=== PATIENT | male | born 1980 | race Caucasian/White ===

== ENCOUNTER 2018-06-28 13:50 | Emergency (ER) | payer MEDICARE ==
[~2018-06-28] VITALS: Ht 195.6 cm; Wt 113.0 kg
[~2018-06-28 13:50] MED LIST: GABA300C10 PO; MORP30TA81 PO; OXYC10TA6 PO
[2018-06-28 13:52] VITALS: BP 134/90
[2018-06-28] MEDS ORDERED: DIPH,PERTUSS(ACELL),TET VAC/PF 0.5 ML IM-VACC ONE ×2 (14:25→14:30)
[2018-06-28] MEDS ORDERED: L.E.T SOLUTION TP ONE ×3 (14:25→14:37)
[2018-06-28] MEDS ORDERED: SILVER SULF. CRM 1% , 25GM ONE (14:25)
[2018-06-28] MEDS ORDERED: OXYcodone/APAP 5/325MG TABLET ONE (14:25)
[2018-06-28] MEDS ORDERED: SILVER SULF. CRM 1% , 25GM TP ONE (14:30)
[2018-06-28] MEDS ORDERED: OXYcodone/APAP 5/325MG TABLET PO ONE (14:30)
[2018-06-28] MEDS ORDERED: BACITRACIN ZINC OINT 500U/GM, 0.9 GM ONE (15:01)
== END 2018-06-28 15:24 | disposition home or self-care (01) ==
LOC: ED 15:03
DX: T22.112A Burn of first degree of left forearm, initial encounter (principal); T31.0 Burns involving less than 10% of body surface; G89.29 Other chronic pain; E78.00 Pure hypercholesterolemia, unspecified; F41.1 Generalized anxiety disorder; F17.200 Nicotine dependence, unspecified, uncomplicated; X19.XXXA Contact with other heat and hot substances, initial encounter; Y93.89 Activity, other specified; Y99.8 Other external cause status; Y92.89 Other specified places as the place of occurrence of the external cause
CPT/HCPCS: 16000; 90471; 90715; 99284

== ENCOUNTER 2019-05-27 08:18 | Outpatient (CLI) | payer MEDICARE, MEDICAID | END 2019-05-27 23:59 | disposition home or self-care (01) | LOC: CARD 08:18 | PROVIDERS: ATTEND Specialist | DX: R41.3 Other amnesia (principal) | CPT/HCPCS: 95816 ==

== ENCOUNTER 2019-12-10 10:01 | Emergency (ER) | payer MEDICAID, MEDICARE ==
[~2019-12-10] VITALS: Ht 195.6 cm; Wt 120.1 kg
[2019-12-10 10:30] VITALS: BP 119/67
[2019-12-10] MEDS ORDERED: ALPR1TAB2 PO (10:47)
[2019-12-10] MEDS ORDERED: GABA300C10 PO (10:47)
[2019-12-10] MEDS ORDERED: OXYC10TA72 PO (10:47)
[2019-12-10] MEDS ORDERED: TIZA4TAB9 PO (10:47)
--- NOTE | 2019-12-10 10:47 | NUR ---
THIS IS A 39 YO MALE WHO PRESENTS TO THE ER C/O COUGH/CHEST TIGHTNESS/DRY HEAVING SINCE WEDNESDAY AFTERNOONE. SKIN PWD. RESP EVEN AND UNLABORED. PT EASILY ABLE TO SPEAK IN FULL 7-10 WORD SENTENCES. OCCAISIONAL COUGH NOTED. PT REPORTS OCCAISIONAL YELLOW PHLEGM. PT AO X 4. PT ON CONT BP AND O2 MONITORS. CALL LIGHT WITHIN REACH. WILL CONT TO MONITOR PT.
--- NOTE | 2019-12-10 11:34 | NUR ---
PT BALBIRY RESTING ON GURNEY. NAD NOTED. SKIN PWD. RESP EVEN AND UNLABORED. PT AWARE THAT WE ARE WAITING FOR IMAGING RESULTS. PT REQUESTED AND WAS PROVIDED WITH WATER WITH OKAY BY BENNY VICK. PT ON CONT BP AND O2 MONITORS. CALL LIGHT WITHIN REACH. WILL CONT TO MONITOR PT.
--- NOTE | 2019-12-10 11:45 | NUR ---
BENNY VICK AT BEDSIDE FOR RECHECK/EXPLANATION OF RESULTS. PT VERBALIZED UNDERSTANDING. PT AO X 4. SKIN PWD. RESP EVEN AND UNLABORED. PT ON CONT BP AND O2 MONITORS. CALL LIGHT WITHIN REACH. WILL CONT TO MONITOR PT.
== END 2019-12-10 11:58 | disposition home or self-care (01) ==
LOC: ED 10:47
DX: J06.9 Acute upper respiratory infection, unspecified (principal); E78.00 Pure hypercholesterolemia, unspecified
CPT/HCPCS: 71046; 93005; 99283